=== PATIENT | male | born 1960 | race African-American/Black ===

== ENCOUNTER 2018-11-19 16:35 | Emergency (ER) | payer OTHER ==
[~2018-11-19] VITALS: Ht 165.1 cm; Wt 78.0 kg
[2018-11-19] MEDS ORDERED: LISINOPRIL20 MG PO (16:54)
[2018-11-19] MEDS ORDERED: NORVASC5 MG PO (16:54)
== END 2018-11-19 18:38 | disposition home or self-care (01) ==
LOC: ED 16:35
PROC: 0HQGXZZ Repair Left Hand Skin, External Approach (ICD-10-PCS; principal; 2018-11-19)
DX: S61.211A Laceration without foreign body of left index finger without damage to nail, initial encounter (principal); W26.0XXA Contact with knife, initial encounter; I10 Essential (primary) hypertension; Z79.899 Other long term (current) drug therapy
CPT/HCPCS: 12002; 90471; 90715; 99282-25